=== PATIENT | male | born 1990 | race Caucasian/White ===

== ENCOUNTER 2023-12-27 09:26 | Emergency (ER) | payer MEDICAID ==
[~2023-12-27] VITALS: Ht 190.5 cm; Wt 106.8 kg
[2023-12-27 09:37] VITALS: BP 176/84; PULSE 86; RESP 16; TEMP 98.6; O2SAT 94
[2023-12-27] MEDS ORDERED: TRIA454O TOP (10:48)
[2024-01-12] MEDS ORDERED: HYDR-3972 PO (12:03)
== END 2023-12-27 11:04 | disposition home or self-care (01) ==
LOC: ER 09:27
DX: T55.0X1A Toxic effect of soaps, accidental (unintentional), initial encounter (principal); L24.5 Irritant contact dermatitis due to other chemical products; Y92.89 Other specified places as the place of occurrence of the external cause
CPT/HCPCS: 99283